=== PATIENT | male | born 1930 | race Caucasian/White ===

== ENCOUNTER → 2018-06-13 | Outpatient (CLI) | payer OTHER | END | disposition home or self-care (01) | LOC: RAD 09:45 | PROVIDERS: ATTEND Internal Medicine | DX: J44.9 Chronic obstructive pulmonary disease, unspecified (principal) | CPT/HCPCS: 71046 ==

== ENCOUNTER 2018-11-19 10:51 | Emergency (ER) | payer MEDICARE, OTHER ==
[~2018-11-19] VITALS: Ht 167.6 cm; Wt 60.0 kg
[2018-11-19 11:06] VITALS: BP 134/73
--- NOTE | 2018-11-19 12:29 | NUR ---
PT TO ROOM FROM LOBBY.
--- NOTE | 2018-11-19 12:41 | NUR ---
PT PRESENTED TO ED WITH LEFT UPPER EXTREMITY LARGE BRUISE. PT IS ON PLAVIX AND THIS BRUISE STARTED YESTERDAY PER FAMILY. PT A&OX4. WITH HX: DEMENTIA. ASSESSMENT COMPLETED. MD AT BEDSIDE. CALL LIGHT IN REACH AND 2 SIDERAILS UP.
[2018-11-19 13:09] LABS: BASOPHILS # (AUTO) 0.03 x10^3/uL (0-0.1); BASOPHILS % (AUTO) 0 % (0-1); EOSINOPHILS # (AUTO) 0.07 x10^3/uL (0-0.4); EOSINOPHILS % (AUTO) 1 % (1-7); LYMPHOCYTES # (AUTO) 0.68 x10^3/uL (1-3.4); LYMPHOCYTES % (AUTO) 9 % (22-44); MD NO; MEAN CORPUSCULAR HEMOGLOBIN 31.9 pg (27.5-34.5); MEAN CORPUSCULAR HGB CONC 32.8 g/dL (33.2-36.2); MEAN CORPUSCULAR VOLUME 97.2 fL (81-97); MONOCYTES # (AUTO) 0.38 x10^3/uL (0.2-0.8); MONOCYTES % (AUTO) 5 % (2-9); NEUTROPHILS # (AUTO) 6.21 x10^3/uL (1.8-6.8); NEUTROPHILS % (AUTO) 84 % (42-75); PLATELET COUNT 289 x10^3/uL (130-400); RED BLOOD COUNT 3.96 x10^6/uL (4.38-5.82); RED CELL DISTRIBUTION WIDTH 14.9 % (9.4-14.8)
[2018-11-19 13:18] LABS: ALBUMIN 2.8 g/dL (3.4-5.0); ANION GAP 4 mmol/L (5-15); CALCIUM 8.4 mg/dL (8.5-10.1); CHLORIDE 108 mmol/L (98-107); CREATININE 0.98 mg/dL (0.7-1.3); PROTHROMBIN TIME 10.5 Seconds (9.6-11.5)
--- NOTE | 2018-11-19 13:30 | NUR ---
awaiting further test results.
--- NOTE | 2018-11-19 14:37 | NUR ---
pt up for recheck.
--- NOTE | 2018-11-19 15:05 | NUR ---
PT DISCHARGED WITH DISCHARGE INSTRUCTIONS GIVEN TO FAMILY. PT DISCHARGED WITH DISCHARGE INSTRUCTIONS AND FOLLOW UP INSTRUCTIONS.
== END 2018-11-19 15:07 | disposition home or self-care (01) ==
LOC: ED 14:47
DX: S53.402A Unspecified sprain of left elbow, initial encounter (principal); S50.02XA Contusion of left elbow, initial encounter; Z87.891 Personal history of nicotine dependence; F03.90 Unspecified dementia, unspecified severity, without behavioral disturbance, psychotic disturbance, mood disturbance, and anxiety; X58.XXXA Exposure to other specified factors, initial encounter; Y93.89 Activity, other specified; Y92.89 Other specified places as the place of occurrence of the external cause; Y99.8 Other external cause status
CPT/HCPCS: 36415; 80048; 82040; 85025; 85610; 85730; 99284

== ENCOUNTER 2018-12-25 20:51 | Inpatient (IN) | payer MEDICARE ==
[~2018-12-25] VITALS: Ht 165.1 cm; Wt 65.3 kg
[2018-12-25] MEDS ORDERED: SPIR25TA5 PO (21:50)
[2018-12-25] MEDS ORDERED: ALBU8.5H8 INH (21:50)
[2018-12-25] MEDS ORDERED: CHOL2000 PO (21:50)
[2018-12-25] MEDS ORDERED: CLOP75TA PO (21:50)
[2018-12-25] MEDS ORDERED: URSO300C27 PO (21:50)
[2018-12-25] MEDS ORDERED: ATOR40TA78 PO (21:50)
[2018-12-25] MEDS ORDERED: MEMA1CAP3 PO (21:50)
[2018-12-25] MEDS ORDERED: RANI150T4 PO (21:50)
[2018-12-25] MEDS ORDERED: AMLO10TA8 PO (21:50)
[2018-12-25] MEDS ORDERED: SODI1TAB PO (21:50)
[2018-12-25] MEDS ORDERED: LEVO50TA5 PO (21:50)
[2018-12-25 21:55] LABS: MEAN CORPUSCULAR HEMOGLOBIN 31.7 pg (27.5-34.5); MEAN CORPUSCULAR HGB CONC 33.6 g/dL (33.2-36.2); MEAN CORPUSCULAR VOLUME 94.5 fL (81-97); MEAN PLATELET VOLUME 8.6 fL (7.4-10.4); PLATELET COUNT 229 x10^3/uL (130-400)
--- NOTE | 2018-12-25 22:01 | NUR ---
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 wishes pt is dnr dni and wants to have comfort care. no iv for now dr boone at bed side discusssed pt's severe condition declining hr is 30-40's bp is managable body core rectal temp is 86.9 applied bear huggar with warm blanket . home med rec was completed blood cultures were drawn x2 awaiting for result pt is ct now
[2018-12-25 22:03] LABS: INTERNATIONAL NORMALIZED RATIO 0.98 (0.93-1.1); PROTHROMBIN TIME 10.3 Seconds (9.6-11.5)
[2018-12-25 22:04] LABS: ALANINE AMINOTRANSFERASE 36 U/L (12-78); ALBUMIN 2.5 g/dL (3.4-5.0); ANION GAP 3 mmol/L (5-15); CALCIUM 9.2 mg/dL (8.5-10.1); CHLORIDE 109 mmol/L (98-107)
--- NOTE | 2018-12-25 22:06 | NUR ---
cxr shows possible pneumonia or atelectasis
[2018-12-25 22:08] LABS: SALICYLATE LEVEL < 1.7 mg/dL (2.8-20.0)
[2018-12-25 22:09] LABS: ALKALINE PHOSPHATASE 257 U/L (45-117); BILIRUBIN,TOTAL 0.4 mg/dL (0.2-1.0); CREATININE 0.96 mg/dL (0.7-1.3); TOTAL PROTEIN 6.1 g/dL (6.4-8.2); TROPONIN I < 0.015 ng/mL (0.000-0.045)
[2018-12-25 22:10] LABS: ACETAMINOPHEN < 2 mcg/mL (10-30)
[2018-12-25 22:20] LABS: BASOPHILS # (AUTO) 0.01 x10^3/uL (0-0.1); BASOPHILS % (AUTO) 0 % (0-1); EOSINOPHILS % (AUTO) 0 % (1-7); LYMPHOCYTES # (AUTO) 0.28 x10^3/uL (1-3.4); LYMPHOCYTES % (AUTO) 2 % (22-44); MD SCAN; MONOCYTES # (AUTO) 0.31 x10^3/uL (0.2-0.8); MONOCYTES % (AUTO) 3 % (2-9); NEUTROPHILS # (AUTO) 11.17 x10^3/uL (1.8-6.8); NEUTROPHILS % (AUTO) 95 % (42-75)
[2018-12-25 22:48] LABS: MICROSCOPIC NOT IND
[2018-12-25 22:54] LABS: CULTURE INDICATED? NO
[2018-12-25] MEDS ORDERED: ALBUTEROL SULFATE 2.5 MG/3 ML NPPB ONE (23:30)
[2018-12-25] MEDS ORDERED: ALBUTEROL/IPRATROPIUM 2.5MG/0.5MG, 3 ML ONE (23:42)
--- NOTE | 2018-12-25 23:59 | NUR ---
gupta was inserted d/t comfort measure ua sent in lab vss stable still low temp applied big bear betty family is inbed side pt will be admitted then will be hospice care eval in am
--- NOTE | 2018-12-26 00:57 | NUR ---
given report to internal affairs investigator at bed side
[2018-12-26 01:19] VITALS: BP 139/76
[2018-12-26] MEDS ORDERED: SCOPOLAMINE PATCH, 1.5MG PATCH.TD72 TD PRN (01:30)
[2018-12-26] MEDS ORDERED: LORazepam 2 MG/ML, 1ML IVPush PRN (01:30)
[2018-12-26] MEDS ORDERED: MORPHINE SULFATE 4 MG/ML, 1ML IVPush PRN (01:30)
[2018-12-26] MEDS: LORazepam INTENSOL 2 MG/ML SL PRN ×4 (09:40→21:34)
[2018-12-26] MEDS: morphine SULFATE ORAL.CONC 20 MG/ML SL PRN ×4 (13:54→21:51)
[2018-12-26] MEDS: ATROPINE OPHTH SOLN 1%, 5ML BC PRN ×3 (19:43→23:33)
[2018-12-27] MEDS: ATROPINE OPHTH SOLN 1%, 5ML BC PRN ×3 (00:42→12:01)
[2018-12-27] MEDS: LORazepam INTENSOL 2 MG/ML SL PRN ×2 (00:43→12:02)
[2018-12-27] MEDS: morphine SULFATE ORAL.CONC 20 MG/ML SL PRN ×2 (07:42→13:08)
== END 2018-12-27 15:54 | disposition expired | DRG 193 ==
LOC: ED 21:26 → EDIP 23:50 → 4NOR 12-26 01:18 → 3NW 12-26 16:45
PROVIDERS: ADMIT Internal Medicine; ATTEND Internal Medicine
DX: J18.9 Pneumonia, unspecified organism (principal); J96.21 Acute and chronic respiratory failure with hypoxia; E43 Unspecified severe protein-calorie malnutrition; G93.40 Encephalopathy, unspecified; J44.0 Chronic obstructive pulmonary disease with (acute) lower respiratory infection; D64.9 Anemia, unspecified; E03.9 Hypothyroidism, unspecified; F03.90 Unspecified dementia, unspecified severity, without behavioral disturbance, psychotic disturbance, mood disturbance, and anxiety; I10 Essential (primary) hypertension; M75.101 Unspecified rotator cuff tear or rupture of right shoulder, not specified as traumatic; N40.0 Benign prostatic hyperplasia without lower urinary tract symptoms; Z51.5 Encounter for palliative care; Z66 Do not resuscitate; Z86.73 Personal history of transient ischemic attack (TIA), and cerebral infarction without residual deficits; Z95.1 Presence of aortocoronary bypass graft; Z90.49 Acquired absence of other specified parts of digestive tract; Z68.24 Body mass index [BMI] 24.0-24.9, adult
CPT/HCPCS: 36415; 51702; 70450; 71045; 80053; 80307; 80329; 81003; 82140; 83605; 84484; 85025; 85610; 85730; 87040; G0378; G0480